=== PATIENT | male | born 1980 | race Caucasian/White ===

== ENCOUNTER 2017-02-27 06:11 | Day surgery (SDC) | payer OTHER ==
[~2017-02-27] VITALS: Ht 170.2 cm; Wt 75.5 kg
[2017-02-27 07:06] VITALS: Ht 170.2 cm; Wt 75.5 kg
[2017-02-27] MEDS ORDERED: LIDOCAINE 2% (SDV) 5 ML INJ ONE (07:46)
[2017-02-27] MEDS ORDERED: PROPOFOL 40 ML ONE (07:46)
[2017-02-27] MEDS ORDERED: MIDAZOLAM 1 MG/ML 2 ML INJ ONE (07:46)
[2017-02-27 07:53] VITALS: BP 119/80; PULSE 75; RESP 20
[2017-02-27] MEDS ORDERED: PROPOFOL 20 ML ONE (08:34)
[2017-02-27 08:50] VITALS: BP 116/80; PULSE 78; RESP 12
--- NOTE | 2017-03-23 12:20 | GILP ---
DATE OF PROCEDURE: NAME OF PROCEDURES: 1. Esophagogastroduodenoscopy and biopsy. 2. Colonoscopy. SURGEON: Miriam Boston MD PREOPERATIVE DIAGNOSES: 1. Chronic heartburn. 2. Rectal bleeding. POSTOPERATIVE DIAGNOSES: 1. Gastroesophageal reflux disease. 2. Gastritis with erosions. 3. Gastric mucosal biopsies were taken for Helicobacter pylori test. 4. Colonoscopy all the way to the cecum. 5. Poor prep making the exam very inadequate and suboptimal. 6. Internal hemorrhoids. INDICATION FOR THE PROCEDURE: Mr. Chaparro Wright is a 36-year-old male patient who had chronic hea rtburn, not responding to therapy. He also had rectal bleeding. The patient was scheduled for endo scopy and colonoscopy for further evaluation. The procedures and possible complications were well explained to the patient. The patient understoo d and consented to the procedures. DESCRIPTION OF PROCEDURE: Under the influence of anesthesia, the gastroscope was carefully introduc ed into the esophagus and under direct vision, it was advanced to the stomach and through the pyloru s into the duodenal bulb and descending duodenum. FINDINGS: ESOPHAGUS: The patient had gastroesophageal reflux disease. He also had gastritis with erosions. Gastric mucosal biopsies were taken for H. pylori test. DUODENUM: Normal. The colonoscope was carefully introduced in the rectum and under direct vision, it was advanced all the way to the cecum. FINDINGS: The patient had poor prep making the exam very inadequate and suboptimal. The patient wa s noted to have internal hemorrhoids. He tolerated the procedures very well and there was no complication from the procedures. At the end of the procedures, he was awake with stable vital signs, and he was discharged home to the care of his family. IMPRESSION: Please see postoperative diagnosis. PLAN: 1. Pantoprazole 40 mg p.o. q.a.m. 2. Anusol-HC 2.5% cream at bedtime p.r.n. 3. Await H. pylori test report. Dictated By: MIRIAM COOPER/HORACE Conf#: [id number] DID#: [id number]
== END 2017-02-27 12:20 | disposition home or self-care (01) ==
LOC: GIL 06:11
PROVIDERS: ATTEND Internal Medicine Gastroenterology
DX: K21.9 Gastro-esophageal reflux disease without esophagitis (principal); K29.60 Other gastritis without bleeding; B96.81 Helicobacter pylori [H. pylori] as the cause of diseases classified elsewhere; K64.8 Other hemorrhoids; F41.9 Anxiety disorder, unspecified
CPT/HCPCS: 43239; 45378; 87081; J2250; Z7610